=== PATIENT | male | born 1995 | race Caucasian/White ===

== ENCOUNTER 2019-09-16 19:23 | Emergency (ER) | payer MEDICAID ==
[2019-09-17] MEDS ORDERED: clonazePAM 0.5 MG TAB PO ONE
[2019-09-17] MEDS ORDERED: LIDOCAINE 1% HCL (LOCAL ANESTH.) INJ 20ML MDV IJ ONE
[2019-09-17] MEDS ORDERED: LET TOPICAL SOLN 5 ML TOP ONE
[2019-09-17] MEDS ORDERED: BENZOCAINE (DENTAL) 20 % SPRAY 60ML MT ONE ×2 (01:11→01:15)
== END 2019-09-16 23:39 | disposition home or self-care (01) ==
LOC: ER 19:26
DX: S01.81XA Laceration without foreign body of other part of head, initial encounter (principal); W18.09XA Striking against other object with subsequent fall, initial encounter; Y93.01 Activity, walking, marching and hiking; Y92.89 Other specified places as the place of occurrence of the external cause; Y99.8 Other external cause status
CPT/HCPCS: 12011